=== PATIENT | male | born 1955 | race African-American/Black ===

== ENCOUNTER 2020-03-10 16:17 | Emergency (ER) | payer MEDICARE, OTHER ==
[2020-03-10 17:54] LABS: #Basophils 0.1 thou/uL (0.0-0.2); #Eosinphils 0.2 thou/uL (0.0-0.7); #Lymphocytes 2.4 thou/uL (1.20-3.40); #Monocytes 0.9 thou/uL (0.11-0.59); #Neutrophils 3.6 thou/uL (1.40-6.50); %Basophils 1.6 % (0.0-1.0); %Eosinophils 2.1 % (0.0-10.0); %Lymphocytes 33.2 % (21.0-51.0); %Neutrophils 50.1 % (42.0-75.0); Hemoglobin 12.5 g/dL (14.0-18.0); Mean Corpuscular HGB CONC 30.2 g/dL (32.0-36.0); Mean Corpuscular Hemoglobin 26.9 pg (27.0-31.0); Mean Corpuscular Volume 89.2 fL (78.0-98.0); Mean Platelet Volume 6.9 fL (7.4-10.4); Platelet Count 254 thou/uL (130-400); RBC Distribution Width 13.3 % (11.5-14.5); Red Blood Cell (RBC) Count 4.65 mill/uL (4.70-6.10); White Blood Cell (WBC) Count 7.3 thou/uL (4.8-10.8)
[2020-03-10 18:11] LABS: ALT (SGPT) 17 U/L (8-55); AST (SGOT) 17 U/L (5-34); Albumin 3.7 g/dL (3.4-4.8); Alkaline Phosphatase 69 U/L (40-110); Anion Gap 14 mmol/L (10-20); BUN (Urea Nitrogen) 29 mg/dL (8.4-25.7); Bilirubin, Total 0.3 mg/dL (0.2-1.2); Calc. Creatinine Clearance 0 mL/min (70-130); Carbon Dioxide 22 mmol/L (23-31); Chloride 106 mmol/L (98-107); Estimated GFR-MDRD Greater than 90; Globulin 3.4 g/dL (2.4-3.5); Glucose 185 mg/dL (80-115); Potassium 3.9 mmol/L (3.5-5.1); Protein, Total 7.1 g/dL (5.8-8.1); Sodium 138 mmol/L (136-145)
[2020-03-10] MEDS ORDERED: Piperacillin/Tazobactam 3.375 GM VIAL ONE (18:25)
[2020-03-10] MEDS ORDERED: Sodium Chloride 0.9% 100 ML ONE (18:25)
[2020-03-10] MEDS ORDERED: Sodium Chloride 0.9% 250 ML 250 ML ONE (18:26)
--- NOTE | 2020-03-10 22:31 | RAD ---
RIGHT FOOT 2 VIEWS: Date: 03/10/2020 PROVIDED CLINICAL HISTORY: Diabetic foot infection. FINDINGS: Comparison with 05/06/2019. Evaluation is limited by lack of a lateral view. There is an ill-defined/lytic appearance to the seco nd digit proximal phalanx distally with widening of the IP joint space, suspicious for changes of ost eomyelitis and septic arthritis. Chronic changes of the second MTP joint. IMPRESSION: Findings suspicious for lytic change at the third proximal phalanx. POS: [facility]
== END 2020-03-10 20:45 | disposition short-term general hospital (02) ==
LOC: NAV ERS 16:17
DX: L03.031 Cellulitis of right toe (principal); L98.499 Non-pressure chronic ulcer of skin of other sites with unspecified severity; E11.9 Type 2 diabetes mellitus without complications; E78.5 Hyperlipidemia, unspecified; E78.00 Pure hypercholesterolemia, unspecified; I10 Essential (primary) hypertension; F03.90 Unspecified dementia, unspecified severity, without behavioral disturbance, psychotic disturbance, mood disturbance, and anxiety; F17.210 Nicotine dependence, cigarettes, uncomplicated; Z79.84 Long term (current) use of oral hypoglycemic drugs; Z79.82 Long term (current) use of aspirin; Z79.899 Other long term (current) drug therapy
CPT/HCPCS: 80053; 83605; 85025; 87040; 96365; 96367; J2543; J3370; J3490; J7050

== ENCOUNTER 2021-12-04 14:55 | Inpatient (IN) | payer MEDICARE, OTHER ==
[2021-12-04] MEDS ORDERED: Acetaminophen 325 MG TAB PO PRN (17:20)
[2021-12-04] MEDS ORDERED: Senokot S 8.6-50 MG TAB PO PRN (17:20)
[2021-12-04] MEDS ORDERED: Dextrose 50% Abboject 50 ML SYRINGE SLOW IVP PRN ×2 (17:20→17:39)
[2021-12-04] MEDS ORDERED: Ondansetron ODT 4 MG TAB SL PRN (17:20)
[2021-12-04] MEDS: HumaLOG 300 UNITS/3 ML VIAL SC PRN (21:25)
[2021-12-04] MEDS: Amoxicillin/Potassium Clav 875 MG TAB PO SCH (21:26)
[2021-12-04] MEDS: Famotidine 20 MG TAB PO SCH (21:26)
[2021-12-05] MEDS: cloNIDine 0.1 MG TAB PO SCH ×4 (02:38→17:27)
[2021-12-05 07:02] LABS: #Basophils 0.2 thou/uL (0.0-0.2); #Eosinphils 0.7 thou/uL (0.0-0.7); #Lymphocytes 2.3 thou/uL (1.20-3.40); #Monocytes 1.4 thou/uL (0.11-0.59); #Neutrophils 5.5 thou/uL (1.40-6.50); %Eosinophils 6.5 % (0.0-10.0); %Lymphocytes 22.7 % (21.0-51.0); %Neutrophils 54.8 % (42.0-75.0); Mean Corpuscular HGB CONC 32.1 g/dL (32.0-36.0); Mean Corpuscular Hemoglobin 27.4 pg (27.0-31.0); Mean Corpuscular Volume 85.3 fL (78.0-98.0); Platelet Count 374 thou/uL (130-400); RBC Distribution Width 13.6 % (11.5-14.5); Red Blood Cell (RBC) Count 4.03 mill/uL (4.70-6.10); White Blood Cell (WBC) Count 10.1 thou/uL (4.8-10.8)
[2021-12-05 07:14] LABS: ALT (SGPT) 24 U/L (8-55); AST (SGOT) 17 U/L (5-34); Albumin 3.1 g/dL (3.4-4.8); Alkaline Phosphatase 44 U/L (40-110); Anion Gap 14 mmol/L (10-20); BUN (Urea Nitrogen) 11 mg/dL (8.4-25.7); Bilirubin, Total 0.7 mg/dL (0.2-1.2); Calc. Creatinine Clearance 154 mL/min (70-130); Carbon Dioxide 21 mmol/L (23-31); Chloride 101 mmol/L (98-107); Globulin 3.5 g/dL (2.4-3.5); Glucose 195 mg/dL (80-115); Protein, Total 6.6 g/dL (5.8-8.1); Sodium 132 mmol/L (136-145)
[2021-12-05] MEDS ORDERED: FLU VACC QS2021-22(65YR UP)/PF 240 MCG/0.7 ML SYRINGE IM ONE (09:00)
[2021-12-05] MEDS ORDERED: Lantus 1000 UNITS/10 ML VIAL SC SCH (09:00)
[2021-12-05] MEDS ORDERED: Insulin Glargine 16 UNITS in Pre-Filled Syringe 1 EACH SC SCH (09:00)
[2021-12-05] MEDS: Amoxicillin/Potassium Clav 875 MG TAB PO SCH ×2 (09:02→20:53)
[2021-12-05] MEDS: Enoxaparin Sodium 40 MG/0.4 ML SYRINGE SC SCH (09:02)
[2021-12-05] MEDS: Aspirin 81 mg Enteric Coated Tablet PO SCH (09:02)
[2021-12-05] MEDS: metFORMIN 500 MG TAB PO SCH ×2 (09:03→17:27)
[2021-12-05] MEDS: Famotidine 20 MG TAB PO SCH ×2 (09:03→20:53)
[2021-12-05] MEDS: Lisinopril 10 MG TAB PO SCH (09:03)
[2021-12-05] MEDS: HumaLOG 300 UNITS/3 ML VIAL SC PRN ×2 (12:02→17:28)
[2021-12-05] MEDS: Lantus 1000 UNITS/10 ML VIAL SC SCH (13:33)
[2021-12-05] MEDS: Atorvastatin Calcium 40 MG TAB PO SCH (20:53)
[2021-12-06] MEDS: cloNIDine 0.1 MG TAB PO SCH ×4 (00:11→18:00)
[2021-12-06] MEDS: Enoxaparin Sodium 40 MG/0.4 ML SYRINGE SC SCH (07:57)
[2021-12-06] MEDS: Lantus 1000 UNITS/10 ML VIAL SC SCH (07:59)
[2021-12-06] MEDS: Amoxicillin/Potassium Clav 875 MG TAB PO SCH ×2 (08:00→20:52)
[2021-12-06] MEDS: Famotidine 20 MG TAB PO SCH ×2 (08:00→20:53)
[2021-12-06] MEDS: metFORMIN 500 MG TAB PO SCH ×2 (08:00→18:00)
[2021-12-06] MEDS: Lisinopril 10 MG TAB PO SCH (08:00)
[2021-12-06] MEDS: Aspirin 81 mg Enteric Coated Tablet PO SCH (08:00)
[2021-12-06] MEDS: HumaLOG 300 UNITS/3 ML VIAL SC PRN ×2 (12:31→20:53)
[2021-12-06] MEDS: Atorvastatin Calcium 40 MG TAB PO SCH (20:52)
[2021-12-07] MEDS: cloNIDine 0.1 MG TAB PO SCH ×3 (06:06→22:27)
[2021-12-07] MEDS: metFORMIN 500 MG TAB PO SCH ×2 (08:07→17:16)
[2021-12-07] MEDS: Aspirin 81 mg Enteric Coated Tablet PO SCH (08:08)
[2021-12-07] MEDS: Famotidine 20 MG TAB PO SCH ×2 (08:08→20:40)
[2021-12-07] MEDS: Amoxicillin/Potassium Clav 875 MG TAB PO SCH ×2 (08:08→20:40)
[2021-12-07] MEDS: Enoxaparin Sodium 40 MG/0.4 ML SYRINGE SC SCH (08:09)
[2021-12-07] MEDS: Lisinopril 10 MG TAB PO SCH (08:09)
[2021-12-07] MEDS: Lantus 1000 UNITS/10 ML VIAL SC SCH (08:14)
[2021-12-07] MEDS: HumaLOG 300 UNITS/3 ML VIAL SC PRN ×2 (12:20→17:18)
[2021-12-07] MEDS: Atorvastatin Calcium 40 MG TAB PO SCH (20:40)
[2021-12-08] MEDS: HumaLOG 300 UNITS/3 ML VIAL SC PRN (06:04)
[2021-12-08] MEDS: cloNIDine 0.1 MG TAB PO SCH ×3 (06:05→21:40)
[2021-12-08] MEDS: Enoxaparin Sodium 40 MG/0.4 ML SYRINGE SC SCH (08:05)
[2021-12-08] MEDS: Lantus 1000 UNITS/10 ML VIAL SC SCH (08:05)
[2021-12-08] MEDS: metFORMIN 500 MG TAB PO SCH ×2 (08:06→17:17)
[2021-12-08] MEDS: Famotidine 20 MG TAB PO SCH ×2 (08:06→21:40)
[2021-12-08] MEDS: Aspirin 81 mg Enteric Coated Tablet PO SCH (08:06)
[2021-12-08] MEDS: Lisinopril 10 MG TAB PO SCH (08:07)
[2021-12-08] MEDS: Atorvastatin Calcium 40 MG TAB PO SCH (21:40)
[2021-12-09] MEDS: cloNIDine 0.1 MG TAB PO SCH ×3 (05:23→22:37)
[2021-12-09] MEDS: Famotidine 20 MG TAB PO SCH ×2 (08:14→20:29)
[2021-12-09] MEDS: Lantus 1000 UNITS/10 ML VIAL SC SCH (08:14)
[2021-12-09] MEDS: Enoxaparin Sodium 40 MG/0.4 ML SYRINGE SC SCH (08:14)
[2021-12-09] MEDS: Lisinopril 10 MG TAB PO SCH (08:16)
[2021-12-09] MEDS: Aspirin 81 mg Enteric Coated Tablet PO SCH (08:16)
[2021-12-09] MEDS: metFORMIN 500 MG TAB PO SCH ×2 (08:16→17:23)
[2021-12-09] MEDS: HumaLOG 300 UNITS/3 ML VIAL SC PRN (12:02)
[2021-12-09] MEDS: Atorvastatin Calcium 40 MG TAB PO SCH (20:29)
[2021-12-10] MEDS: cloNIDine 0.1 MG TAB PO SCH ×3 (06:31→22:44)
[2021-12-10] MEDS: Lisinopril 10 MG TAB PO SCH (09:09)
[2021-12-10] MEDS: Enoxaparin Sodium 40 MG/0.4 ML SYRINGE SC SCH (09:09)
[2021-12-10] MEDS: metFORMIN 500 MG TAB PO SCH ×2 (09:10→17:26)
[2021-12-10] MEDS: Famotidine 20 MG TAB PO SCH ×2 (09:10→20:56)
[2021-12-10] MEDS: Lantus 1000 UNITS/10 ML VIAL SC SCH (09:10)
[2021-12-10] MEDS: Aspirin 81 mg Enteric Coated Tablet PO SCH (09:10)
[2021-12-10] MEDS: HumaLOG 300 UNITS/3 ML VIAL SC PRN (12:20)
[2021-12-10] MEDS: Atorvastatin Calcium 40 MG TAB PO SCH (20:56)
[2021-12-11] MEDS: cloNIDine 0.1 MG TAB PO SCH ×3 (05:24→22:17)
[2021-12-11] MEDS: metFORMIN 500 MG TAB PO SCH ×2 (09:06→17:19)
[2021-12-11] MEDS: Enoxaparin Sodium 40 MG/0.4 ML SYRINGE SC SCH (09:06)
[2021-12-11] MEDS: Lisinopril 10 MG TAB PO SCH (09:07)
[2021-12-11] MEDS: Famotidine 20 MG TAB PO SCH ×2 (09:07→21:07)
[2021-12-11] MEDS: Lantus 1000 UNITS/10 ML VIAL SC SCH (09:07)
[2021-12-11] MEDS: Aspirin 81 mg Enteric Coated Tablet PO SCH (09:07)
[2021-12-11] MEDS: HumaLOG 300 UNITS/3 ML VIAL SC PRN (12:00)
[2021-12-11] MEDS: Atorvastatin Calcium 40 MG TAB PO SCH (21:07)
[2021-12-12] MEDS: cloNIDine 0.1 MG TAB PO SCH ×3 (05:22→22:26)
[2021-12-12] MEDS: metFORMIN 500 MG TAB PO SCH ×2 (09:13→20:50)
[2021-12-12] MEDS: Enoxaparin Sodium 40 MG/0.4 ML SYRINGE SC SCH (09:13)
[2021-12-12] MEDS: Famotidine 20 MG TAB PO SCH ×2 (09:14→20:50)
[2021-12-12] MEDS: Lantus 1000 UNITS/10 ML VIAL SC SCH (09:14)
[2021-12-12] MEDS: Lisinopril 10 MG TAB PO SCH (09:14)
[2021-12-12] MEDS: Aspirin 81 mg Enteric Coated Tablet PO SCH (09:14)
[2021-12-12] MEDS: HumaLOG 300 UNITS/3 ML VIAL SC PRN (11:37)
[2021-12-12] MEDS: Atorvastatin Calcium 40 MG TAB PO SCH (20:50)
[2021-12-13] MEDS: cloNIDine 0.1 MG TAB PO SCH ×3 (05:17→23:13)
[2021-12-13 07:40] LABS: Calc. Creatinine Clearance 150 mL/min (70-130)
[2021-12-13 07:54] LABS: Hemoglobin 11.2 g/dL (14.0-18.0); Platelet Count 550 thou/uL (130-400)
[2021-12-13] MEDS: Enoxaparin Sodium 40 MG/0.4 ML SYRINGE SC SCH (08:34)
[2021-12-13] MEDS: Aspirin 81 mg Enteric Coated Tablet PO SCH (08:35)
[2021-12-13] MEDS: Famotidine 20 MG TAB PO SCH ×2 (08:35→20:50)
[2021-12-13] MEDS: Lantus 1000 UNITS/10 ML VIAL SC SCH (08:35)
[2021-12-13] MEDS: metFORMIN 500 MG TAB PO SCH ×2 (08:35→17:43)
[2021-12-13] MEDS: Lisinopril 10 MG TAB PO SCH (08:35)
[2021-12-13] MEDS: HumaLOG 300 UNITS/3 ML VIAL SC PRN (11:49)
[2021-12-13] MEDS: Atorvastatin Calcium 40 MG TAB PO SCH (20:50)
[2021-12-14] MEDS: cloNIDine 0.1 MG TAB PO SCH ×3 (06:04→21:40)
[2021-12-14] MEDS: Enoxaparin Sodium 40 MG/0.4 ML SYRINGE SC SCH (08:30)
[2021-12-14] MEDS: Aspirin 81 mg Enteric Coated Tablet PO SCH (08:30)
[2021-12-14] MEDS: Famotidine 20 MG TAB PO SCH ×2 (08:30→20:15)
[2021-12-14] MEDS: Lantus 1000 UNITS/10 ML VIAL SC SCH (08:31)
[2021-12-14] MEDS: metFORMIN 500 MG TAB PO SCH ×2 (08:31→17:37)
[2021-12-14] MEDS: Lisinopril 10 MG TAB PO SCH (08:31)
[2021-12-14] MEDS: HumaLOG 300 UNITS/3 ML VIAL SC PRN (12:13)
[2021-12-14] MEDS: Atorvastatin Calcium 40 MG TAB PO SCH (20:15)
[2021-12-15] MEDS: cloNIDine 0.1 MG TAB PO SCH ×3 (05:35→21:00)
[2021-12-15] MEDS: HumaLOG 300 UNITS/3 ML VIAL SC PRN (05:54)
[2021-12-15] MEDS: Enoxaparin Sodium 40 MG/0.4 ML SYRINGE SC SCH (07:55)
[2021-12-15] MEDS: Lisinopril 10 MG TAB PO SCH (07:56)
[2021-12-15] MEDS: Aspirin 81 mg Enteric Coated Tablet PO SCH (07:56)
[2021-12-15] MEDS: Famotidine 20 MG TAB PO SCH ×2 (07:57→20:59)
[2021-12-15] MEDS: metFORMIN 500 MG TAB PO SCH ×2 (07:57→17:30)
[2021-12-15] MEDS: Lantus 1000 UNITS/10 ML VIAL SC SCH (07:57)
[2021-12-15] MEDS: Atorvastatin Calcium 40 MG TAB PO SCH (20:59)
[2021-12-16] MEDS: cloNIDine 0.1 MG TAB PO SCH ×3 (05:31→21:13)
[2021-12-16] MEDS: metFORMIN 500 MG TAB PO SCH ×2 (08:06→17:41)
[2021-12-16] MEDS: Enoxaparin Sodium 40 MG/0.4 ML SYRINGE SC SCH (08:07)
[2021-12-16] MEDS: Famotidine 20 MG TAB PO SCH ×2 (08:07→21:13)
[2021-12-16] MEDS: Aspirin 81 mg Enteric Coated Tablet PO SCH (08:07)
[2021-12-16] MEDS: Lisinopril 10 MG TAB PO SCH (08:08)
[2021-12-16] MEDS: Lantus 1000 UNITS/10 ML VIAL SC SCH (08:08)
[2021-12-16] MEDS: Atorvastatin Calcium 40 MG TAB PO SCH (21:13)
[2021-12-17] MEDS: cloNIDine 0.1 MG TAB PO SCH ×3 (05:31→20:53)
[2021-12-17] MEDS: Enoxaparin Sodium 40 MG/0.4 ML SYRINGE SC SCH (08:41)
[2021-12-17] MEDS: Lisinopril 10 MG TAB PO SCH (08:41)
[2021-12-17] MEDS: Aspirin 81 mg Enteric Coated Tablet PO SCH (08:41)
[2021-12-17] MEDS: Lantus 1000 UNITS/10 ML VIAL SC SCH (08:42)
[2021-12-17] MEDS: Famotidine 20 MG TAB PO SCH ×2 (08:42→20:53)
[2021-12-17] MEDS: metFORMIN 500 MG TAB PO SCH ×2 (08:42→18:14)
[2021-12-17] MEDS: Atorvastatin Calcium 40 MG TAB PO SCH (20:53)
[2021-12-18] MEDS: cloNIDine 0.1 MG TAB PO SCH ×3 (05:28→21:04)
[2021-12-18] MEDS: HumaLOG 300 UNITS/3 ML VIAL SC PRN (05:52)
[2021-12-18] MEDS: metFORMIN 500 MG TAB PO SCH ×2 (09:13→16:19)
[2021-12-18] MEDS: Aspirin 81 mg Enteric Coated Tablet PO SCH (09:14)
[2021-12-18] MEDS: Famotidine 20 MG TAB PO SCH ×2 (09:14→21:04)
[2021-12-18] MEDS: Lisinopril 10 MG TAB PO SCH (09:14)
[2021-12-18] MEDS: Lantus 1000 UNITS/10 ML VIAL SC SCH (09:17)
[2021-12-18] MEDS: Enoxaparin Sodium 40 MG/0.4 ML SYRINGE SC SCH (09:17)
[2021-12-18] MEDS: Atorvastatin Calcium 40 MG TAB PO SCH (21:04)
[2021-12-19] MEDS: HumaLOG 300 UNITS/3 ML VIAL SC PRN (05:37)
[2021-12-19] MEDS: cloNIDine 0.1 MG TAB PO SCH ×3 (05:37→21:55)
[2021-12-19 06:35] LABS: #Basophils 0.1 thou/uL (0.0-0.2); #Eosinphils 0.5 thou/uL (0.0-0.7); #Lymphocytes 2.3 thou/uL (1.20-3.40); #Monocytes 0.9 thou/uL (0.11-0.59); #Neutrophils 3.3 thou/uL (1.40-6.50); %Basophils 1.7 % (0.0-1.0); %Lymphocytes 32.2 % (21.0-51.0); %Monocytes 12.5 % (0.0-10.0); %Neutrophils 46.7 % (42.0-75.0); Mean Corpuscular HGB CONC 30.9 g/dL (32.0-36.0); Mean Corpuscular Hemoglobin 27.1 pg (27.0-31.0); Mean Corpuscular Volume 87.7 fL (78.0-98.0); Platelet Count 452 thou/uL (130-400); RBC Distribution Width 15.1 % (11.5-14.5); Red Blood Cell (RBC) Count 4.06 mill/uL (4.70-6.10)
[2021-12-19 06:40] LABS: Anion Gap 12 mmol/L (10-20); BUN (Urea Nitrogen) 11 mg/dL (8.4-25.7); Calc. Creatinine Clearance 144 mL/min (70-130); Calcium 8.9 mg/dL (7.8-10.44); Carbon Dioxide 24 mmol/L (23-31); Chloride 106 mmol/L (98-107); Glucose 170 mg/dL (80-115); Sodium 138 mmol/L (136-145)
[2021-12-19] MEDS: metFORMIN 500 MG TAB PO SCH ×2 (08:21→17:10)
[2021-12-19] MEDS: Lisinopril 10 MG TAB PO SCH (08:21)
[2021-12-19] MEDS: Famotidine 20 MG TAB PO SCH ×2 (08:21→21:02)
[2021-12-19] MEDS: Aspirin 81 mg Enteric Coated Tablet PO SCH (08:21)
[2021-12-19] MEDS: Lantus 1000 UNITS/10 ML VIAL SC SCH (08:23)
[2021-12-19] MEDS: Enoxaparin Sodium 40 MG/0.4 ML SYRINGE SC SCH (08:26)
[2021-12-19] MEDS: Atorvastatin Calcium 40 MG TAB PO SCH (21:02)
[2021-12-20] MEDS: cloNIDine 0.1 MG TAB PO SCH ×2 (05:36→15:10)
[2021-12-20] MEDS: HumaLOG 300 UNITS/3 ML VIAL SC PRN (05:37)
[2021-12-20] MEDS: metFORMIN 500 MG TAB PO SCH ×2 (08:48→17:12)
[2021-12-20] MEDS: Lantus 1000 UNITS/10 ML VIAL SC SCH (08:49)
[2021-12-20] MEDS: Aspirin 81 mg Enteric Coated Tablet PO SCH (08:49)
[2021-12-20] MEDS: Enoxaparin Sodium 40 MG/0.4 ML SYRINGE SC SCH (08:49)
[2021-12-20] MEDS: Famotidine 20 MG TAB PO SCH ×2 (08:49→20:29)
[2021-12-20] MEDS: Lisinopril 10 MG TAB PO SCH (08:50)
[2021-12-20] MEDS: Atorvastatin Calcium 40 MG TAB PO SCH (20:29)
[2021-12-21] MEDS: cloNIDine 0.1 MG TAB PO SCH ×4 (00:02→21:04)
[2021-12-21] MEDS: metFORMIN 500 MG TAB PO SCH ×2 (08:04→17:38)
[2021-12-21] MEDS: Enoxaparin Sodium 40 MG/0.4 ML SYRINGE SC SCH (08:05)
[2021-12-21] MEDS: Lisinopril 10 MG TAB PO SCH (08:05)
[2021-12-21] MEDS: Lantus 1000 UNITS/10 ML VIAL SC SCH (08:05)
[2021-12-21] MEDS: Famotidine 20 MG TAB PO SCH ×2 (08:05→21:04)
[2021-12-21] MEDS: Aspirin 81 mg Enteric Coated Tablet PO SCH (08:05)
[2021-12-21] MEDS: HumaLOG 300 UNITS/3 ML VIAL SC PRN (17:39)
[2021-12-21] MEDS: Atorvastatin Calcium 40 MG TAB PO SCH (21:04)
[2021-12-22] MEDS: cloNIDine 0.1 MG TAB PO SCH ×3 (05:28→22:15)
[2021-12-22 05:31] VITALS: BMI 22.8
[2021-12-22] MEDS: Enoxaparin Sodium 40 MG/0.4 ML SYRINGE SC SCH (08:13)
[2021-12-22] MEDS: metFORMIN 500 MG TAB PO SCH ×2 (08:13→17:49)
[2021-12-22] MEDS: Aspirin 81 mg Enteric Coated Tablet PO SCH (08:13)
[2021-12-22] MEDS: Famotidine 20 MG TAB PO SCH ×2 (08:13→20:30)
[2021-12-22] MEDS: Lantus 1000 UNITS/10 ML VIAL SC SCH (08:14)
[2021-12-22] MEDS: Lisinopril 10 MG TAB PO SCH (08:17)
[2021-12-22] MEDS: Atorvastatin Calcium 40 MG TAB PO SCH (20:30)
[2021-12-23] MEDS: cloNIDine 0.1 MG TAB PO SCH ×3 (05:16→21:41)
[2021-12-23] MEDS: Enoxaparin Sodium 40 MG/0.4 ML SYRINGE SC SCH (09:13)
[2021-12-23] MEDS: Lisinopril 10 MG TAB PO SCH (09:13)
[2021-12-23] MEDS: Lantus 1000 UNITS/10 ML VIAL SC SCH (09:13)
[2021-12-23] MEDS: metFORMIN 500 MG TAB PO SCH ×2 (09:13→17:06)
[2021-12-23] MEDS: Famotidine 20 MG TAB PO SCH ×2 (09:13→21:41)
[2021-12-23] MEDS: Aspirin 81 mg Enteric Coated Tablet PO SCH (09:13)
[2021-12-23] MEDS: Atorvastatin Calcium 40 MG TAB PO SCH (21:41)
[2021-12-24] MEDS: cloNIDine 0.1 MG TAB PO SCH ×3 (05:28→23:08)
[2021-12-24] MEDS: Lisinopril 10 MG TAB PO SCH (08:37)
[2021-12-24] MEDS: metFORMIN 500 MG TAB PO SCH ×2 (08:37→17:10)
[2021-12-24] MEDS: Enoxaparin Sodium 40 MG/0.4 ML SYRINGE SC SCH (08:37)
[2021-12-24] MEDS: Lantus 1000 UNITS/10 ML VIAL SC SCH (08:38)
[2021-12-24] MEDS: Aspirin 81 mg Enteric Coated Tablet PO SCH (08:38)
[2021-12-24] MEDS: Famotidine 20 MG TAB PO SCH ×2 (08:38→20:30)
[2021-12-24] MEDS: HumaLOG 300 UNITS/3 ML VIAL SC PRN (17:11)
[2021-12-24] MEDS: Atorvastatin Calcium 40 MG TAB PO SCH (20:30)
[2021-12-25] MEDS: cloNIDine 0.1 MG TAB PO SCH ×3 (05:21→21:03)
[2021-12-25] MEDS: Enoxaparin Sodium 40 MG/0.4 ML SYRINGE SC SCH (09:22)
[2021-12-25] MEDS: Lisinopril 10 MG TAB PO SCH (09:23)
[2021-12-25] MEDS: Famotidine 20 MG TAB PO SCH ×2 (09:23→21:03)
[2021-12-25] MEDS: metFORMIN 500 MG TAB PO SCH ×2 (09:23→17:29)
[2021-12-25] MEDS: Lantus 1000 UNITS/10 ML VIAL SC SCH (09:24)
[2021-12-25] MEDS: Aspirin 81 mg Enteric Coated Tablet PO SCH (09:24)
[2021-12-25] MEDS: Atorvastatin Calcium 40 MG TAB PO SCH (21:03)
[2021-12-26] MEDS: cloNIDine 0.1 MG TAB PO SCH ×2 (05:14→14:57)
[2021-12-26] MEDS: Famotidine 20 MG TAB PO SCH (08:18)
[2021-12-26] MEDS: Enoxaparin Sodium 40 MG/0.4 ML SYRINGE SC SCH (08:18)
[2021-12-26] MEDS: metFORMIN 500 MG TAB PO SCH ×2 (08:19→17:34)
[2021-12-26] MEDS: Lisinopril 10 MG TAB PO SCH (08:19)
[2021-12-26] MEDS: Aspirin 81 mg Enteric Coated Tablet PO SCH (08:19)
[2021-12-26] MEDS: Lantus 1000 UNITS/10 ML VIAL SC SCH (08:20)
[2021-12-26 08:21] VITALS: TEMP 97.8
[2021-12-26] MEDS: HumaLOG 300 UNITS/3 ML VIAL SC PRN (11:42)
[2021-12-26 14:57] VITALS: BP 139/67
== END 2021-12-26 19:35 | DRG 561 ==
LOC: NAV ACUTE 18:45
PROVIDERS: ADMIT Family Medicine; ATTEND Family Medicine
DX: Z47.81 Encounter for orthopedic aftercare following surgical amputation (principal); E11.51 Type 2 diabetes mellitus with diabetic peripheral angiopathy without gangrene; I10 Essential (primary) hypertension; F03.90 Unspecified dementia, unspecified severity, without behavioral disturbance, psychotic disturbance, mood disturbance, and anxiety; E78.5 Hyperlipidemia, unspecified; Z20.822 Contact with and (suspected) exposure to COVID-19; J44.9 Chronic obstructive pulmonary disease, unspecified; F17.210 Nicotine dependence, cigarettes, uncomplicated; Z79.84 Long term (current) use of oral hypoglycemic drugs; D64.9 Anemia, unspecified; Z83.3 Family history of diabetes mellitus; Z82.49 Family history of ischemic heart disease and other diseases of the circulatory system; Z79.82 Long term (current) use of aspirin; Z79.899 Other long term (current) drug therapy; Z79.4 Long term (current) use of insulin
CPT/HCPCS: 36416; 80048; 80053; 82565; 85014; 85018; 85025; 85049; 36415-59; J1650; J1815; U0003; U0005